=== PATIENT | male | born 1970 | race Caucasian/White ===

== ENCOUNTER → 2017-09-15 10:27 | Outpatient (CLI) | payer BC, SELFPAY ==
[2017-09-15 13:11] LABS: Anion Gap 9 (5-15); BUN 11 mg/dL (7-18); BUN/Creat Ratio 11.2 RATIO (10-20); Calcium,Total 8.9 mg/dL (8.5-10.1); Chloride 105 mmol/L (98-107); Cholesterol 147 mg/dL (200); Creatinine, Serum 0.98 mg/dL (0.70-1.30); EST Glomerular Filtration Rate 87 mL/min (>60); Est Glom Filt Rate - Afr Amer 106 mL/min (>60); Glucose 157 mg/dL (74-106); High Density Lipoprotein 31 mg/dL; Potassium 3.9 mmol/L (3.5-5.1); Sodium Level 141 mmol/L (136-145); Triglycerides 85 mg/dL; Very Low Density Lipoprotein 17 mg/dL (5-40)
[2017-09-15 13:17] LABS: Microalbumin,Random Urine 97.5 mg/L (NO RANGE EST.); Microalbumin:Creatinine Ratio 120.2 mg/g CRE (<30 mg/g CRE)
== END ==
PROVIDERS: Family Provider Family Medicine; PCP Family Medicine; Visit Provider Family Medicine
DX: E11.9 Type 2 diabetes mellitus without complications (principal)
CPT/HCPCS: 36415; 80048; 80061; 82043; 82570

== ENCOUNTER 2017-09-19 09:14 | Observation (INO) | payer BC, SELFPAY ==
[2017-09-19 09:14] VITALS: BP 139/84; PULSE 103; RESP 18; TEMP 36.6; O2SAT 96; BMI 35.9
[2017-09-19] MEDS: 0.9% Normal Saline 1,000 ML 1000 ML IV (09:55)
[2017-09-19] MEDS: Ondansetron 4 MG/2 ML Vial IV ×2 (09:56→19:39)
[2017-09-19] MEDS: Dicyclomine 20 MG/2 ML Vial IM (09:56)
--- NOTE | 2017-09-19 10:12 | ED.VISSUMM ---
- ER Visit Summary Date of Service: 09/19/17 Chief Complaint: [Abdominal pain and diarrhea] History of Present Illness: The patient is a 47 M [presents to the emergency department chief complaint of abdominal pain that started yesterday. Patient initially started with diarrhea about 5 days ago. Patient states that he continues to have diarrhea and his last bowel movement was about half an hour ago. Patient denies his vomiting but has had some nausea over last 24 hours. Patient had a sick contact last week that had similar illness but only lasted about 3 days. Denies any recent travel. Patient denies recent antibiotic usage. Patient has a history of diabetes and high cholesterol. Patient presents today with complaint of abdominal distention.] Physical Examination: [HEENT-PERRLA, EOMI. Cranial nerves II through XII grossly intact. TMs clear. Mucous membranes moist. No adenopathy. Cardiovascular-regular rate and rhythm without murmur or ectopy Lungs-clear to auscultation, chest wall stable without crepitus or subcu emphysema Abdomen-hyperactive bowel sounds with some mild distention. There is mild diffuse tenderness. There is no rebound, rigidity, or perineal signs. Extremities-intact ?4, normal range of motion, normal pulses, atraumatic] Test Results: [CBC with differential obtained showed a white blood cell count of 18.6, heme globin 19, hematocrit 53, platelets 250. Chemistries unremarkable. BUN was 20 and creatinine was 1.43. Glucose was 313. Lactate was elevated 2.4. CT scan of the abdomen and pelvis showed some small scattered lymph nodes otherwise nothing significant.] Emergency Department Course and Treatment: [And received 2 L normal saline fluid boluses and had stool sent for enteric pathogens.] Treatment Plan: [Admit] Disposition: [Admit] Impression: [Gastroenteritis Dehydration] This note was generated with [employer] dictation software. It may contain incorrect words, spelling, and punctuation that were not noted in review of the chart prior to signing ED Disposition - Plan for ED Patient: Chief Complaint: Abd Pain Referrals: Mohinder Bonilla MD [Primary Care Provider] -
[2017-09-19 10:16] LABS: Absolute Lymphocyte Count 2.78 X10^3/ul (0.83-4.51); Absolute Neutrophil Count 12.2 X10^3/uL (2.0-7.7); Basophil# 0.03 X10^3/uL; Basophil% 0.2 % (0-1); Eosinophils% 15.1 % (0-5); Lymphocyte # 2.78 X10^3/ul (4.0); Mean Corpuscular Hgb 29.4 pg (27.0-32.0); Mean Corpuscular Volume 81.7 fL (80-94); Mean Platelet Vol. 10.4 fl (6.2-12.0); Monocyte# 0.66 X10^3/uL; Monocyte% 3.6 % (0-10); Neutrophil # 12.21 X10^3/uL (2.7-7.7); Neutrophil % 65.6 % (47-70); Platelet Count 250 K/mm3 (150-450); RBC Distribution Width CV 13.3 % (11.6-14.6); RBC Distribution Width SD 39.4 fl (35.1-43.9); Red Blood Count 6.49 M/mm3 (4.6-6.2); White Blood Count 18.6 K/mm3 (4.4-11.0)
[2017-09-19 10:19] LABS: Differential Indicated SCAN CRITERIA MET; Hemoglobin 19.1 g/dl (13.0-16.5); POSITIVE COUNT NO; POSITIVE DIFFERENTIAL YES; POSITIVE MORPHOLOGY NO
--- NOTE | 2017-09-19 10:21 | CT_ITS ---
STUDY: CT ABDOMEN AND PELVIS WITH CONTRAST REASON FOR EXAM: Male, 47 years old. Diarrhea for one week, abdominal pain, bloating, distention. RADIATION DOSAGE (If Supplied By Facility): CTDIvol = ( 15.53 ) mGy, DLP = ( 1196.38 ) mGycm TECHNIQUE: Transaxial images were obtained from the dome of the diaphragm to the symphysis pubis with oral contrast. 100 ml of Isovue 300 contrast was administered. Sagittal and coronal images were reconstructed. Individualized dose optimization techniques were used for this CT. COMPARISON: None. FINDINGS: The visualized lung bases are unremarkable. The visualized portions of the heart are within normal limits. 5 mm ill-defined low-density difficult to further characterize noted in the anterior margin of segment IV of the liver on series 2 image 16. The elongated left lobe extends into the anterolateral left upper quadrant. Patent portal vein diameter is 15 mm. Normal gallbladder and extrahepatic biliary system. Normal spleen. Normal pancreas. Normal bilateral adrenal glands. Normal right kidney. Normal left kidney. No hydronephrosis. Normal visualized stomach. Normal small intestine. There are several small sigmoid colonic diverticula consistent with diverticulosis. The appendix is visualized and appears normal. There are several central mesenteric lymph nodes ranging from subcentimeter nonspecific size to mildly enlarged. One of the larger is 19 x 12 x 6 mm (series 601 image 52, series 2 image 54). There is mild atherosclerotic calcification of the abdominal aorta, without a demonstrated aneurysm. Normal inferior vena cava. Normal retroperitoneum. Normal urinary bladder. The prostate gland is 4.05 x 3.5 x 3.4 cm (25.4 cc). Normal abdominal wall. There are mild degenerative changes of the visualized spine, sacroiliac joints, hips, and pubic symphysis. Disc height narrowing is most prominent at L5-S1. Elongated 6.5 mm sclerotic density in the left femoral head has a benign appearance. CT/Abdomen/Pelvis WITH Contrast IMPRESSION: 1. Mild sigmoid diverticulosis without acute diverticulitis. No sign of bowel obstruction. The appendix is normal. 2. There are central mesenteric lymph nodes ranging from nonspecific subcentimeter size to mildly enlarged. No inflammatory/congestive mesenteric stranding, however. 3. 5 mm low-density difficult to characterize in segment IV of the liver. 4. No hydronephrosis. 5. Prostate gland size is upper normal. 6. Degenerative changes in the spine and pelvis. Electronically Signed: Hao Smith MD at 12:43 EST , Service support ,
[2017-09-19 10:26] LABS: AST(SGOT) 7 U/L (15-37); Alanine Aminotransfer ALT/SGPT 25 U/L (16-61); Alkaline Phosphatase 97 U/L (45-117); Anion Gap 14 (5-15); BUN 20 mg/dL (7-18); Calcium,Total 10.7 mg/dL (8.5-10.1); Chloride 92 mmol/L (98-107); Creatinine, Serum 1.43 mg/dL (0.70-1.30); EST Glomerular Filtration Rate 57 mL/min (>60); Est Glom Filt Rate - Afr Amer 68 mL/min (>60); Estimated Creatinine Clearance 60.35 ml/min; Globulin 4.1 g/dL (2.2-4.2); Glucose 313 mg/dL (74-106); Potassium 3.4 mmol/L (3.5-5.1); Protein, Total 8.1 g/dL (6.4-8.2); Sodium Level 130 mmol/L (136-145)
[2017-09-19 10:41] LABS: Differential Comment SCANNED
[2017-09-19 10:47] LABS: Lactic Acid 2.4 mmol/L (0.4-2.0)
--- NOTE | 2017-09-19 10:53 | ED.RN ---
PT WITH CRITICAL LAB VALUE OF LACTIC 2.4 AND HBG 19.1. BOTH VALUES COMMUNICATED VERBALLY TO DR. CABA.
[2017-09-19] MEDS: 0.9% Normal Saline 1,000 ML 999 ML IV (10:56)
[2017-09-19 11:14] VITALS: BP 125/61; PULSE 79; RESP 16; O2SAT 99
--- NOTE | 2017-09-19 13:13 | NURSING ---
DR PAT FOR DR CABA. HE'S BUSY WITH ANOTHER PATIENT. HE WILL CALL HER BACK WHEN DONE
--- NOTE | 2017-09-19 13:51 | NURSING ---
205 DEHYDRATION, PASQUALE, ASTROENTERITIS IMAMURA
[2017-09-19 13:55] VITALS: BP 125/65; PULSE 104; RESP 16; O2SAT 97
--- NOTE | 2017-09-19 13:59 | PCM.HP.STD ---
Problem List (1) Gastroenteritis and colitis, viral Status: Acute (2) PASQUALE (acute kidney injury) Status: Acute (3) Dehydration Status: Acute (4) Diabetes mellitus type II, controlled, with no complications Status: Chronic (5) Essential hypertension, benign Status: Chronic (6) Hypokalemia Status: Acute History of Present Illness Date of Admission: 09/19/17 Chief Complaint: Diarrhea, abdominal pain Patient is a 47 years old male, who presents with diarrhea and abdominal discomfort. He had symptoms of diarrhea, 1 to 2 times every hour for past 5 days, started to have abdominal bloating and cramping pain since yesterday. His cousin had similar symptoms prior to this episode. He has no history of recent travel. He had some nausea, but no vomiting. He denied of any fever or chills. He tried to keep up with fluid intake, but unable to do so for past 24 hours. His stool is watery yellow-green diarrhea. He has history of diabetes, controlled with oral hypoglycemic agents. He denied of any chest pain, palpitations, dyspnea, or dizziness. He denied of any hematochezia or melena. Past Medical History Past Medical History (Chronic Problems): Chronic Problems Diabetes mellitus type II, controlled, with no complications (Chronic) Essential hypertension, benign (Chronic) Allergies No Known Allergies Allergy (Verified 09/19/17 09:16) Home Medications: Ambulatory Orders Medication Instructions Recorded Empagliflozin [Jardiance] 10 mg PO DAILY 09/19/17 Glipizide [Glucotrol Xl] 10 mg PO DAILY 09/19/17 Losartan Potassium [Cozaar] 50 mg PO DAILY 09/19/17 Metformin HCl [Glucophage] 1,000 mg PO BIDCM 09/19/17 Simvastatin [Zocor] 20 mg PO QHS 09/19/17 Surgical History: no surgical history Psychiatric History: No pertinent psych hx Lives: With Family Smoking Status: Never smoker Alcohol: None Drugs: None - *Family History Maternal History Items: COPD - Mother. Paternal History Items: Cancer - Father had esophageal cancer. Review of Systems Comment: ROS: In general: Patient has been in good health, denied of any constitutional symptoms, such as weight loss, or gain, fever, chills, or night sweats. Patient denied of any profound fatigue. HEENT: Unremarkable. Patient denied of any dizziness, chronic headache, blurred vision, double vision, dry mouth, or nasal congestion. CV/respiratory: There is no exertional shortness of breath, chest pain, palpitation, wheezing, cough, claudication, cold feet, or peripheral edema. GI: See HPI. : Patient denied any significant urinary symptoms. Neurology: Unremarkable. There is no history of seizure as an adult. Psychological: Unremarkable. ?. Endocrine: Unremarkable. Musculoskeletal: Unremarkable. VTE Information - Inpt Only VTE Present on Admission: No VTE Mechan Device Prophylaxis: None VTE Pharm Prophylaxis ordered?: No Reason prophylaxis not ordered:: Treatment Not Indicated Patient Problems: Active and Suspected Problems Gastroenteritis and colitis, viral (Acute) PASQUALE (acute kidney injury) (Acute) Dehydration (Acute) Hypokalemia (Acute) Objective: In general, patient is a well-nourished and developed adult. HEENT: Head is atraumatic, and normocephalic. Pupils are equal, round, and reactive to light and accommodations. Neck is supple. There is no lymphadenopathy, or thyromegaly. Oral mucosa is pink, and moist. There are no lesions. Heart: Auscultation is normal with regular rhythm and rate. There is no extra heart sounds, or murmurs. S1 and S2 are present. Point of maximal impulse is not displaced. Lungs: Lungs are clear to auscultation bilaterally. There is no wheezing, or crackles. Abdomen: Abdominal wall is non-tender, and non-distended. There is no palpable mass or organomegaly. Bowel sounds slightly hyperpitched. Extremities: There is no cyanosis or clubbing. Peripheral pulses are palpable. There is no edema. Skin: There are no any skin discoloration or lesions. Neurological: CN II - XII are intact. Sensory and motor functions are grossly normal with no obvious deficit. Cerebellar functions are within normal range. Gait was not tested. - Physical Exam Vital Signs Temp Pulse Resp BP Pulse Ox 98 F 79 16 125/61 H 99 09/19/17 09:14 09/19/17 11:14 09/19/17 11:14 09/19/17 11:14 09/19/17 11:14 Oxygen Delivery Method Room Air Weight: 229 lb Body Mass Index (BMI) 35.9 Microbiology Past 72 Hours 09/19/17 10:00 Enteric Bacteriology - Final Stool Laboratory Tests Past 24 Hrs 09/19/17 09/19/17 09/19/17 09:44 09:44 09:44 WBC 18.6 H RBC 6.49 H Hgb 19.1 H* Hct 53.0 MCV 81.7 MCH 29.4 MCHC 36.0 RDW 13.3 RDW Differential 39.4 Plt Count 250 MPV 10.4 Immature Gran % (Auto) 0.500 Neut % (Auto) 65.6 Lymph % (Auto) 15.0 L [place] % (Auto) 3.6 Eos % (Auto) 15.1 H Baso % (Auto) 0.2 Absolute Neuts (auto) 12.2 H Absolute Lymphs (auto) 2.78 Total Counted Not Reportable Differential Comment SCANNED Diff Path Review December Sodium 130 L Potassium 3.4 L Chloride 92 L Carbon Dioxide 24.0 Anion Gap 14 BUN 20 H Creatinine 1.43 H Estim Creat Clear Calc 60.35 Est GFR (MDRD) Af Amer 68 Est GFR (MDRD) Non-Af 57 L BUN/Creatinine Ratio 14.0 Glucose 313 H Lactic Acid 2.4 H Calcium 10.7 H Total Bilirubin 0.80 AST 7 L ALT 25 Alkaline Phosphatase 97 Total Protein 8.1 Albumin 4.0 Globulin 4.1 Albumin/Globulin Ratio 1.0 Diagnostic Data Abdomen/Pelvis CT 09/19/17 10:21 IMPRESSION: 1. Mild sigmoid diverticulosis without acute diverticulitis. No sign of bowel obstruction. The appendix is normal. 2. There are central mesenteric lymph nodes ranging from nonspecific subcentimeter size to mildly enlarged. No inflammatory/congestive mesenteric stranding, however. 3. 5 mm low-density difficult to characterize in segment IV of the liver. 4. No hydronephrosis. 5. Prostate gland size is upper normal. 6. Degenerative changes in the spine and pelvis. Electronically Signed: Hao Smith MD at 12:43 EST , Service support , Assessment/Plan Active and Suspected Problems Gastroenteritis and colitis, viral (Acute) PASQUALE (acute kidney injury) (Acute) Dehydration (Acute) Hypokalemia (Acute) Patient is a 47 years old male, who presents with diarrhea and abdominal discomfort. He had symptoms of diarrhea, 1 to 2 times every hour for past 5 days, started to have abdominal bloating and cramping pain since yesterday. His cousin had similar symptoms prior to this episode. He has no history of recent travel. He had some nausea, but no vomiting. He denied of any fever or chills. He tried to keep up with fluid intake, but unable to do so for past 24 hours. His stool is watery yellow-green diarrhea. #1 Diarrhea / abdominal pain. Likely due to viral gastroenteritis / colitis, with leukocytosis. He had sick contact with similar symptoms. He has no use of antibiotics for past 6 month. Stool tests ordered from ED, result pending. Clear liquid, advance as tolerated. Conservative measures. IVF support. #2 PASQUALE / dehydration. Creatinine elevated to 1.43, baseline is normal. Most likely due to pre-renal azotemia with dehydration. IVF as above. Hold losartan for now. #3 DM II, controlled, no complications. Hold oral hypoglycemic agents. Add insulin sliding scale. #4 Essential hypertension. Blood pressure is adequate. Hold losartan for PASQUALE. #5 Hypokalemia. Potassium 3.4. Give K-CL IVPB 20 meq x 1. repeat BMP in AM. VTE prophylaxis: early ambulation. GI prophylaxis: H2 angelito po. Patient is full code. Disposition: home in 1 to 2 days. Code Visit OBSV E&M: 25058 Initial observation care L3
[2017-09-19 14:05] LABS: Reflex Lactate? Y
[2017-09-19 14:26] VITALS: BMI 35.9
[2017-09-19 14:54] VITALS: BP 120/53; PULSE 91; RESP 18; TEMP 37.2; O2SAT 99
[2017-09-19 14:55] VITALS: BMI 34.5
[2017-09-19] MEDS: 0.9% Normal Saline 1,000 ML 150 ML IV ×2 (15:12→21:33)
[2017-09-19 16:09] LABS: Lactic Acid 2.1 mmol/L (0.4-2.0)
[2017-09-19 17:01] LABS: Bedside Glucose 102 mg/dL (70-110)
[2017-09-19] MEDS: 0.9% NaCl Peripheral Flush Adult/Peds IV (19:39)
[2017-09-19 20:31] VITALS: BP 126/64; PULSE 65; RESP 16; TEMP 36.8; O2SAT 98
[2017-09-19] MEDS: Famotidine 20 MG Tablet PO (21:33)
[2017-09-19 22:06] LABS: Bedside Glucose 97 mg/dL (70-110)
[2017-09-20 02:35] VITALS: BP 112/56; PULSE 62; RESP 16; TEMP 36.9; O2SAT 97
[2017-09-20] MEDS: 0.9% Normal Saline 1,000 ML 150 ML IV ×2 (04:00→10:19)
[2017-09-20 06:50] LABS: Absolute Lymphocyte Count 3.09 X10^3/ul (0.83-4.51); Absolute Neutrophil Count 6.9 X10^3/uL (2.0-7.7); Basophil# 0.07 X10^3/uL; Basophil% 0.5 % (0-1); Eosinophils% 27.1 % (0-5); Hematocrit 45.4 % (40-54); Hemoglobin 16.4 g/dl (13.0-16.5); Lymphocyte # 3.09 X10^3/ul (4.0); Lymphocyte % 20.3 % (19-41); Mean Corp Hgb Conc 36.1 g/gl (32-36); Mean Corpuscular Hgb 29.4 pg (27.0-32.0); Mean Corpuscular Volume 81.5 fL (80-94); Mean Platelet Vol. 10.4 fl (6.2-12.0); Monocyte# 0.95 X10^3/uL; Monocyte% 6.3 % (0-10); Neutrophil # 6.92 X10^3/uL (2.7-7.7); Neutrophil % 45.5 % (47-70); Platelet Count 222 K/mm3 (150-450); RBC Distribution Width CV 13.7 % (11.6-14.6); RBC Distribution Width SD 40.1 fl (35.1-43.9); Red Blood Count 5.57 M/mm3 (4.6-6.2); White Blood Count 15.2 K/mm3 (4.4-11.0)
[2017-09-20 06:51] LABS: Differential Indicated SCAN CRITERIA MET; Eosinophil# 4.12 X10^3/uL; POSITIVE COUNT NO; POSITIVE DIFFERENTIAL YES; POSITIVE MORPHOLOGY NO
[2017-09-20 06:51] LABS: Bedside Glucose 126 mg/dL (70-110)
[2017-09-20 07:20] LABS: Anion Gap 13 (5-15); BUN 18 mg/dL (7-18); BUN/Creat Ratio 17.1 RATIO (10-20); Calcium,Total 8.3 mg/dL (8.5-10.1); Chloride 102 mmol/L (98-107); Creatinine, Serum 1.05 mg/dL (0.70-1.30); EST Glomerular Filtration Rate 81 mL/min (>60); Est Glom Filt Rate - Afr Amer 98 mL/min (>60); Estimated Creatinine Clearance 82.19 ml/min; Glucose 145 mg/dL (74-106); Potassium 3.2 mmol/L (3.5-5.1); Sodium Level 138 mmol/L (136-145)
[2017-09-20 07:25] LABS: Differential Comment SCAN
[2017-09-20 08:00] VITALS: RESP 18
[2017-09-20 08:30] VITALS: BP 107/60; PULSE 65; RESP 16; TEMP 36.8; O2SAT 98
--- NOTE | 2017-09-20 09:24 | PN_ITS ---
Patient Problems: Active and Suspected Problems Gastroenteritis and colitis, viral (Acute) PASQUALE (acute kidney injury) (Acute) Dehydration (Acute) Hypokalemia (Acute) Subjective: Patient is a 47-year-old male with a past medical history of diabetes mellitus type 2, obesity and hypertension presented to the emergency room at [facility] on 09/19/2017 complaining of a 5 day history of severe diarrhea. Vital signs at presentation to the emergency room were temperature 98 ?F, pulse rate 103, pressure 139/84, respiratory rate 18 and he was 96-99% saturated on room air. White blood cell count was elevated at 18.6 with 15% eosinophils. Sodium was 130 and the potassium was 3.4. BUN was 20 with a creatinine of 1.43. Glucose was 313 and the lactic acid was 2.4. Calcium was elevated at 10.7 secondary to dehydration. LFTs were unremarkable. The enteric pathogen panel was negative. He stated that he had a sick contact with similar symptoms. He has been afebrile since admission. It will signs are stable. The pulse rate is down to 65 following hydration. White blood cell count is still elevated at 15.2 and now there are 27% eosinophils. Potassium is low at 3.2 today and the BUN is 1.05, down from 1.43 at admission. He denies any new medications or foods recently. He has well water and uses it to clean and cook with. 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 He denies nausea or vomiting. No recent travel. No undercooked meat. No Fevers and no chills. He continues to have frequent watery stools. the stool has a yellow brown color and floats on the water. No problems with chronic diarrhea. No FH of IBD. No rash and no pruritus. No SOB or wheezing. Has not been on any antibiotics recently and has no hx of C Diff. - Physical Exam General: Alert, Oriented x3, Cooperative, No apparent distress, Well developed, Well nourished HEENT: Atraumatic, PERRLA, EOMI Oral: Moist Mucosa, No Gingival or Mucosal Lesions/ Ulcerations Neck: Supple, No JVD Lungs: Clear to auscultation, Normal air movement Cardiovascular: Regular rate, Regular Rhythm, Normal S1, Normal S2, No murmurs, No rub noted, No Gallop Abdomen: Bowel Sounds Present - not hyperactive, Soft, Non Tender, Distended - and tympanic Extremities: No clubbing, No cyanosis, No edema, No Calf Tenderness Musculoskeletal: No Muscle Wasting Neurological: Cranial nerves II-XII grossly intact, Neuro grossly intact, Motor Exam 5/5 strength throughout Psych/Mental Status: Normal Affect, Appropriate Vital Signs Temp Pulse Resp BP Pulse Ox 98.3 F 65 16 107/60 98 09/20/17 08:30 09/20/17 08:30 09/20/17 08:30 09/20/17 08:30 09/20/17 08:30 Oxygen Delivery Method Room Air Weight: 220 lb 8 oz Body Mass Index (BMI) 34.5 Intake and Output for Last 24 Hours 09/18/17 09/19/17 09/20/17 23:59 23:59 23:59 Intake Total 3599 / 3599 Output Total 1150 / 1150 Balance 2449 / 2449 Laboratory Tests Past 24 Hrs 09/19/17 09/20/17 09/20/17 14:48 06:35 06:35 WBC 15.2 H RBC 5.57 Hgb 16.4 Hct 45.4 MCV 81.5 MCH 29.4 MCHC 36.1 H RDW 13.7 RDW Differential 40.1 Plt Count 222 MPV 10.4 Immature Gran % (Auto) 0.300 Neut % (Auto) 45.5 L Lymph % (Auto) 20.3 [place] % (Auto) 6.3 Eos % (Auto) 27.1 H Baso % (Auto) 0.5 Absolute Neuts (auto) 6.9 Absolute Lymphs (auto) 3.09 Total Counted Not Reportable Differential Comment SCAN Diff Path Review May foll Sodium 138 Potassium 3.2 L Chloride 102 Carbon Dioxide 23.0 Anion Gap 13 BUN 18 Creatinine 1.05 Estim Creat Clear Calc 82.19 Est GFR (MDRD) Af Amer 98 Est GFR (MDRD) Non-Af 81 BUN/Creatinine Ratio 17.1 Glucose 145 H Lactic Acid 2.1 H Calcium 8.3 L POC Glucose 09/20/17 09/19/17 09/19/17 06:15 21:32 16:53 POC Glucose 126 H 97 102 Assessment/Plan Active and Suspected Problems Gastroenteritis and colitis, viral (Acute) PASQUALE (acute kidney injury) (Acute) Dehydration (Acute) Hypokalemia (Acute) impressions 1. intractable diarrhea - with the increased eosinophils I am suspecting he has a parasite. 2. elevated creatinine due to dehydration 3. hypokalemia 4. DM II - well controlled 5. obesity 6. HTN Check stool for fecal leukos and also for O&P after the stool sample is obtained for O&P start empiric Flagyl continue to hydrate and add K to the NS Recheck lab in the AM including a Lipid panel and LFT's......if W/U for parasites is negative consider fecal fat study....but this would not explain the eosinophilia Full liquid, no dairy diet. Code Visit Inpatient E&M: 91733 Subs Hosp L2
[2017-09-20 10:03] LABS: Magnesium 1.8 mg/dL (1.6-2.6); Phosphorus 2.6 mg/dL (2.5-4.9)
[2017-09-20] MEDS: Famotidine 20 MG Tablet PO ×2 (10:15→21:41)
[2017-09-20 10:36] LABS: Hemoglobin A1c 6.6 % (4.2-6.3)
[2017-09-20 11:36] LABS: Bedside Glucose 135 mg/dL (70-110)
[2017-09-20 12:05] LABS: HIV - WCH Non-Reactive (Nonreactive)
[2017-09-20 14:11] VITALS: BP 112/51; PULSE 66; RESP 18; TEMP 36.8; O2SAT 98
[2017-09-20] MEDS: metroNIDAZOLE 500 MG Tablet PO ×2 (14:13→21:41)
[2017-09-20 16:51] LABS: Bedside Glucose 149 mg/dL (70-110)
[2017-09-20 21:45] VITALS: BP 122/62; PULSE 61; RESP 18; TEMP 36.4; O2SAT 98
[2017-09-20 21:51] LABS: Bedside Glucose 170 mg/dL (70-110)
[2017-09-21 03:45] VITALS: BP 104/61; PULSE 61; RESP 16; TEMP 36.8; O2SAT 96
[2017-09-21] MEDS: metroNIDAZOLE 500 MG Tablet PO ×3 (05:50→21:01)
[2017-09-21 06:12] LABS: Absolute Lymphocyte Count 2.62 X10^3/ul (0.83-4.51); Absolute Neutrophil Count 5.4 X10^3/uL (2.0-7.7); Basophil# 0.06 X10^3/uL; Basophil% 0.5 % (0-1); Eosinophils% 26.8 % (0-5); Hematocrit 41.6 % (40-54); Hemoglobin 14.9 g/dl (13.0-16.5); Lymphocyte # 2.62 X10^3/ul (4.0); Lymphocyte % 21.5 % (19-41); Mean Corp Hgb Conc 35.8 g/gl (32-36); Mean Corpuscular Hgb 29.2 pg (27.0-32.0); Mean Corpuscular Volume 81.6 fL (80-94); Mean Platelet Vol. 10.5 fl (6.2-12.0); Monocyte% 6.6 % (0-10); Neutrophil # 5.41 X10^3/uL (2.7-7.7); Neutrophil % 44.3 % (47-70); Platelet Count 191 K/mm3 (150-450); RBC Distribution Width CV 13.4 % (11.6-14.6); RBC Distribution Width SD 38.9 fl (35.1-43.9); White Blood Count 12.2 K/mm3 (4.4-11.0)
[2017-09-21 06:15] LABS: Differential Indicated SCAN CRITERIA MET; Eosinophil# 3.27 X10^3/uL; POSITIVE COUNT NO; POSITIVE DIFFERENTIAL YES; POSITIVE MORPHOLOGY NO
[2017-09-21 06:41] LABS: Bedside Glucose 198 mg/dL (70-110)
[2017-09-21 06:41] LABS: ALB/GLOB Ratio 0.9 RATIO (0.9-2.4); AST(SGOT) 11 U/L (15-37); Alanine Aminotransfer ALT/SGPT 19 U/L (16-61); Albumin, Serum 2.9 g/dL (3.2-5.0); Alkaline Phosphatase 64 U/L (45-117); Anion Gap 10 (5-15); BUN 18 mg/dL (7-18); Calcium,Total 7.8 mg/dL (8.5-10.1); Chloride 104 mmol/L (98-107); Cholesterol 120 mg/dL (200); Creatinine, Serum 0.82 mg/dL (0.70-1.30); EST Glomerular Filtration Rate 108 mL/min (>60); Est Glom Filt Rate - Afr Amer 130 mL/min (>60); Estimated Creatinine Clearance 105.24 ml/min; Globulin 3.1 g/dL (2.2-4.2); Glucose 184 mg/dL (74-106); High Density Lipoprotein 26 mg/dL; Magnesium 1.8 mg/dL (1.6-2.6); Phosphorus 1.7 mg/dL (2.5-4.9); Potassium 3.1 mmol/L (3.5-5.1); Sodium Level 137 mmol/L (136-145); Triglycerides 126 mg/dL; Very Low Density Lipoprotein 25 mg/dL (5-40)
[2017-09-21 07:08] LABS: Differential Comment SCAN
[2017-09-21 09:45] VITALS: BP 108/70; PULSE 64; RESP 18; TEMP 36.5; O2SAT 98
[2017-09-21 10:29] LABS: Pathologist Review Reviewed
[2017-09-21] MEDS: Famotidine 20 MG Tablet PO ×2 (11:05→21:01)
[2017-09-21 11:21] LABS: Bedside Glucose 255 mg/dL (70-110)
[2017-09-21 11:51] LABS: Bedside Glucose 256 mg/dL (70-110)
--- NOTE | 2017-09-21 13:54 | PCM.PROGNOTE ---
Patient Problems: Active and Suspected Problems Gastroenteritis and colitis, viral (Acute) PASQUALE (acute kidney injury) (Acute) Dehydration (Acute) Hypokalemia (Acute) Subjective: Continues to have watery diarrhea and fecal urgency. Afebrile since admission. Vital signs are stable and the heart rate is maintained within the normal limits as long as he is on IV fluids. All lab was reviewed. White blood cell count today is 12.2 with 26.8% eosinophils. Platelets and hemoglobin are within normal limits. Potassium is low at 3.1 despite adding potassium to his IV fluids. Serum phosphorus is also low at 1.7. Magnesium is 1.8. Triglycerides are normal at 126 and the LDL is 69 with an HDL of 26. Blood sugar record was reviewed. Fecal leukocytes are negative. Enteric pathogen panel is negative O&P is pending but, may not be back for a few days. No fever, WBC count is normal. He does have a hx of allergies and takes antihistamines for nasal congestion. No hx of asthma or psoriasis or eczema. No joint pain or swelling. No difficulaty swallowing. No FH of autoimmune diseases. - Physical Exam General: Alert, Oriented x3, Cooperative, No apparent distress, Well developed, Well nourished Oral: Moist Mucosa, No Gingival or Mucosal Lesions/ Ulcerations Neck: Supple, Trachea Midline Lungs: Clear to auscultation, No wheeze Cardiovascular: Regular rate, Regular Rhythm, Normal S1, Normal S2, No murmurs, No Gallop Abdomen: Soft, Hyperactive Bowel Sounds, Distended Extremities: No clubbing, No cyanosis, No edema Skin: No rashes Neurological: Cranial nerves II-XII grossly intact, Neuro grossly intact Psych/Mental Status: Normal Affect, Appropriate Vital Signs Temp Pulse Resp BP Pulse Ox 97.7 F L 64 18 108/70 98 09/21/17 09:45 09/21/17 09:45 09/21/17 09:45 09/21/17 09:45 09/21/17 09:45 Oxygen Delivery Method Room Air Weight: 220 lb 7.996 oz Body Mass Index (BMI) 34.5 Intake and Output for Last 24 Hours 09/19/17 09/20/17 09/21/17 23:59 23:59 23:59 Intake Total 7299 / 7299 3896 / 3896 Output Total 5750 / 5750 3400 / 3400 Balance 1549 / 1549 496 / 496 Microbiology Past 72 Hours 09/20/17 10:00 Stool Lactoferrin - Final Stool Laboratory Tests Past 24 Hrs 09/21/17 09/21/17 05:40 05:40 WBC 12.2 H RBC 5.10 Hgb 14.9 Hct 41.6 MCV 81.6 MCH 29.2 MCHC 35.8 RDW 13.4 RDW Differential 38.9 Plt Count 191 MPV 10.5 Immature Gran % (Auto) 0.300 Neut % (Auto) 44.3 L Lymph % (Auto) 21.5 [place] % (Auto) 6.6 Eos % (Auto) 26.8 H Baso % (Auto) 0.5 Absolute Neuts (auto) 5.4 Absolute Lymphs (auto) 2.62 Total Counted Not Reportable Differential Comment SCAN Diff Path Review Reviewed Sodium 137 Potassium 3.1 L Chloride 104 Carbon Dioxide 23.0 Anion Gap 10 BUN 18 Creatinine 0.82 Estim Creat Clear Calc 105.24 Est GFR (MDRD) Af Amer 130 Est GFR (MDRD) Non-Af 108 BUN/Creatinine Ratio 22.0 H Glucose 184 H Calcium 7.8 L Phosphorus 1.7 L Magnesium 1.8 Total Bilirubin 0.50 AST 11 L ALT 19 Alkaline Phosphatase 64 Total Protein 6.0 L Albumin 2.9 L Globulin 3.1 Albumin/Globulin Ratio 0.9 Triglycerides 126 Cholesterol 120 LDL Cholesterol 69 VLDL Cholesterol 25 HDL Cholesterol 26 L POC Glucose 09/21/17 09/21/17 09/21/17 11:44 11:03 06:20 POC Glucose 256 H 255 H 198 H 09/20/17 09/20/17 21:40 16:34 POC Glucose 170 H 149 H Assessment/Plan Active and Suspected Problems Gastroenteritis and colitis, viral (Acute) PASQUALE (acute kidney injury) (Acute) Dehydration (Acute) Hypokalemia (Acute) impressions 1. intractable diarrhea - with the increased eosinophils I am suspecting he has a parasite. 2. elevated creatinine due to dehydration 3. hypokalemia 4. DM II - well controlled 5. obesity 6. HTN 7. Hypophosphatemia 8. eosinophilia with an absolute eosinophil count of 3294. I do not think this is infectious because he has no fecal leukocytes and the Enteric pathogen panel and the HIV are negative. I suspect he may have eosinophilc enteritis but, can not r/o things like lymphoma and other hematologic malignancies at this time. Will consult Gastroenterology and ID for now but, may need to consider a Heme/onc consult as well if no infection and the colon biopsies are negative. Hold off on Steroids until we have a definitive diagnosis Supplement the phos and the potassium Consult Dr. Fernandes Continue the Metronidazole for now Consult Dr. Cardoso Recheck the lab in the AM Check IG G/A/M/E
[2017-09-21 14:03] VITALS: BP 120/57; PULSE 64; RESP 18; TEMP 36.5; O2SAT 98
[2017-09-21 14:48] LABS: Pathologist Review Reviewed
[2017-09-21 14:53] LABS: Pathologist Review Reviewed
[2017-09-21 14:59] LABS: Ferritin 198 ng/mL (26-388); Iron 70 ug/dL (65-175); Iron Binding Capacity,Total 349 ug/dL (250-450); PERCENT IRON SATURATION 20.1 % (15.0-55.0)
--- NOTE | 2017-09-21 15:45 | PCM.CONS.B ---
- Consult Date of Consult: 09/21/17 Reason for consultation: Patient with diarrhea and eosinophilia The patient is a [47] year old [male] who I have been asked to consult. The patient reports chronic diarrhea for the last week or so had no travel history no food poisoning one else at home is sick. He is not taking any new medications as any weight loss no fever or chills blood or mucus in the diarrhea just watery brown and lately has been biliary like. He denies any family members is having disease or chronic colitis as any fever or night sweats. The patient reports he ate at a solid bowel last week with his cousin apparently was sick at the time he has recovered. She denies any chest pains cough asthma wheezing his review of systems is noted he does have diabetes otherwise reports he is doing relatively well does not have any neurological or complaints endocrine disorders neurological problems have some renal insufficiency upon admission but this has resolved with hydration. Allergies: No drug allergies Medications: Active Medications Generic Name Dose Route Start Last Admin Trade Name Freq PRN Reason Stop Dose Admin Al Hydroxide/Mg Hydroxide 30 ml 09/19/17 14:45 Mylanta Ii PO Q6H PRN PRN Gastric burning Dextrose 0 gm 09/19/17 14:45 D50w Syringe IV X1 PRN Hypoglycemia Protocol Famotidine 20 mg 09/19/17 22:00 09/21/17 11:05 Pepcid PO 20 mg BID SEBASTIEN Administration Glucagon 1 mg 09/19/17 14:45 IM .X1 PRN Hypoglycemia Potassium Chloride/Sodium Chloride 1,000 mls @ 150 mls/hr 09/20/17 10:56 09/21/17 13:55 IV 150 mls/hr .Q6H40M SEBASTIEN Administration Insulin Aspart 0 units 09/19/17 16:00 09/21/17 11:11 Novolog Flexpen (Bkc) SC 3 units TIDAC SEBASTIEN Administration Protocol Magnesium Hydroxide 30 ml 09/19/17 14:45 Milk Of Magnesia PO DAILY PRN PRN Constipation Metronidazole 500 mg 09/20/17 14:00 09/21/17 13:55 Flagyl PO 500 mg TID SEBASTIEN Administration Morphine Sulfate 2 mg 09/19/17 19:19 Morphine IV Q3H PRN PRN SEVERE PAIN (6-10/10) Nutritional Formula (Lactose Free) 120 ml 09/20/17 08:00 09/21/17 11:05 Ensure Clear PO 120 ml TIDCM SEBASTIEN Administration Ondansetron HCl 4 mg 09/19/17 14:45 09/19/17 19:39 Zofran IV 4 mg Q6H PRN PRN Administration NAUSEA Sodium Chloride 5 - 30 ml 09/19/17 15:20 09/19/17 19:39 IV 10 ml UD PRN Administration SALINE FLUSH Sodium Chloride/Electrolytes 2,000 ml 09/22/17 07:00 Nulytely PO 09/22/17 07:01 X1 ONE Zolpidem Tartrate 5 mg 09/19/17 14:45 Ambien (Generic) PO QHS PRN PRN INSOMNIA PMH: He has diabetes and hypertension PSH: Recent surgeries Social: He denies smoking ROS: Noted in the HPI Vitals: Vital Signs Height 5 ft 7 in Weight: 100.017 kg Weight in Pounds 220.5 lbs Pulse Ox 98 Temperature 97.7 F Pulse Rate 64 Respiratory Rate 18 Blood Pressure 120/57 Blood Pressure Position Semi-Fowlers HEENT: Anicteric sclera conjunctiva pink NECK: Supple no JVD HEART: S1-S2 no murmur heard LUNGS: Clear bilaterally no rales ABDOMEN: Slight distention tympanic to percussion EXTER: No peripheral edema Neuro: Alert ?3 no gross deficits Impression: This is a 47-year-old male presenting with acute onset of diarrhea now for almost 1 week did eat a salad bar was sickly after that last week significant eosinophilia stool for pathogens currently pending. I would recommend a C-reactive protein stool for ova and parasites. I did discuss a colonoscopy with biopsies of the mucosa including the terminal ileum this will be scheduled in the morning.
[2017-09-21 17:35] LABS: Bedside Glucose 198 mg/dL (70-110)
[2017-09-21] MEDS: Electrolyte Solution/Peg's 4000 ML 2000 ML PO (20:02)
[2017-09-21 21:03] VITALS: BP 119/69; PULSE 58; RESP 16; TEMP 36.2; O2SAT 99
[2017-09-21 21:17] LABS: Bedside Glucose 190 mg/dL (70-110)
[2017-09-22] VITALS (8 sets, daily range): BP systolic 93–118; BP diastolic 41–65; PULSE 57–70; RESP 16–18; TEMP 36.4–36.7; O2SAT 97–100
--- NOTE | 2017-09-22 05:00 | EKG12_ITS ---
Test Reason : Blood Pressure : / mmHG Vent. Rate : 061 BPM Atrial Rate : 061 BPM P-R Int : 164 ms QRS Dur : 088 ms QT Int : 430 ms P-R-T Axes : 036 -41 019 degrees QTc Int : 432 ms Normal sinus rhythm Left axis deviation Abnormal ECG No previous ECGs available Confirmed by ELAINE BAEZ ([id number]), primer expeditor and drier HILDA DOMINGUEZ ([id number]) on 10/03/2017 1:54:18 PM Referred By: Confirmed By:ELAINE BAEZ
[2017-09-22] MEDS: metroNIDAZOLE 500 MG Tablet PO ×2 (06:41→13:14)
[2017-09-22] MEDS: Electrolyte Solution/Peg's 4000 ML 2000 ML PO (06:42)
[2017-09-22 06:50] LABS: Bedside Glucose 192 mg/dL (70-110)
[2017-09-22 06:56] LABS: Absolute Lymphocyte Count 2.57 X10^3/ul (0.83-4.51); Absolute Neutrophil Count 4.1 X10^3/uL (2.0-7.7); Basophil# 0.02 X10^3/uL; Basophil% 0.2 % (0-1); Eosinophil# 1.57 X10^3/uL; Eosinophils% 17.6 % (0-5); Hematocrit 44.3 % (40-54); Hemoglobin 15.4 g/dl (13.0-16.5); Lymphocyte # 2.57 X10^3/ul (4.0); Lymphocyte % 28.8 % (19-41); Mean Corp Hgb Conc 34.8 g/gl (32-36); Mean Corpuscular Hgb 28.8 pg (27.0-32.0); Mean Platelet Vol. 10.5 fl (6.2-12.0); Monocyte# 0.62 X10^3/uL; Neutrophil # 4.11 X10^3/uL (2.7-7.7); Neutrophil % 46.1 % (47-70); Platelet Count 174 K/mm3 (150-450); RBC Distribution Width CV 13.2 % (11.6-14.6); RBC Distribution Width SD 39.8 fl (35.1-43.9); Red Blood Count 5.34 M/mm3 (4.6-6.2); White Blood Count 8.9 K/mm3 (4.4-11.0)
[2017-09-22 06:58] LABS: POSITIVE COUNT NO; POSITIVE DIFFERENTIAL NO; POSITIVE MORPHOLOGY NO
[2017-09-22 07:13] LABS: Erythrocyte Sedimentation Rate 5 mm/hr (0-15)
[2017-09-22 07:37] LABS: Anion Gap 13 (5-15); BUN 12 mg/dL (7-18); BUN/Creat Ratio 15.2 RATIO (10-20); Chloride 107 mmol/L (98-107); Creatinine, Serum 0.79 mg/dL (0.70-1.30); EST Glomerular Filtration Rate 112 mL/min (>60); Est Glom Filt Rate - Afr Amer 135 mL/min (>60); Estimated Creatinine Clearance 109.24 ml/min; Glucose 194 mg/dL (74-106); Potassium 3.1 mmol/L (3.5-5.1); Sodium Level 140 mmol/L (136-145)
[2017-09-22 09:23] LABS: Vitamin B12 746 pg/mL (211-911)
--- NOTE | 2017-09-22 10:45 | CASEMGMT ---
See RN CM Assessment. DC PLAN: home. No needs identified. Felice ROCKN RN ACM
[2017-09-22 11:46] LABS: Bedside Glucose 196 mg/dL (70-110)
--- NOTE | 2017-09-22 11:55 | COLBX_PTH ---
PATIENT: LOIS ZAZUETA LOC: MS2 U#:[id number] AGE/SX: 47/M ROOM: [facility] [place] RE09/19/[address]: Dr. Nessa Martin DO : 1970 BED: 1 DIS: 09/22/2017 SPEC #: [id number] RECD: 09/22/17 13:51 STATUS: RANDALL REJorje #: [id number] MONICA: 09/22/17 11:[address]: Toni Fernandes DEPT: SURGICAL PATHOLOGY RECD BY: Danny Park ENTERED: 09/22/17 13:52 SP TYPE: COLON BX OTHR DR: DO Dr. Mohinder Dunbar MD Dr. Robert Leininger, MD Yoichi Imamura, MD Tissues: A - Ileum, NOS B - Right colon C - Left colon Procedures: Trichrome (control) Special Stain Group II Surgery Specimen Level IV Comments: @ Ordering doctor for CARIDAD edited from to @ by RAJESHOD at 09/25/17813 @ Submitting doctor edited from to @ by RGOOD at 09/25/1714 HEADER OPERATION: Colonoscopy PRE-OP DIAGNOSIS: Diarrhea, rule out Crohn?s, rule out colitis TISSUE SUBMITTED: A ? Terminal ileum biopsy, B ? Right colon biopsy and transverse biopsy, C ? Left colon biopsy MICROSCOPIC DIAGNOSIS A. Terminal ileum, biopsy: No pathologic change. B. Right colon and transverse colon, biopsy: Focal acute colitis. C. Left colon, biopsy: Focal acute colitis. AM:kamla 09/25/17 COMMENT A. Prominent benign appearing lymphoid aggregates are present. B. Rare cryptitis and crypt abscesses are seen. The lamina propria contains increased number of eosinophils. The significance of this is unclear. There is no glandular distortion, ulceration or expansion of lamina propria by chronic inflammatory cells. Clinical correlation is suggested. C. Rare cryptitis is noted. No crypt abscesses, granulomas or ulcers are seen. Clinical correlation is suggested. Trichrome stain with matched control does not reveal a thickened basal plate. MICROSCOPIC DESCRIPTION Slides are reviewed. GROSS DESCRIPTION A - Received in fixative is one container labeled with the patient's name and designated terminal ileum biopsy. The specimen consists of multiple irregular fragments of light fofana soft tissue that in aggregate measure 0.5 x 0.3 x 0.1 cm. The specimen is totally submitted in one cassette. B - Received in fixative is one container labeled with the patient's name and designated right colon biopsy and transverse. The specimen consists of multiple irregular fragments of light fofana soft tissue that in aggregate measure 1 x 0.8 x 0.1 cm. The specimen is totally submitted in one cassette. C - Received in fixative is one container labeled with the patient's name and designated left colon biopsy. The specimen consists of multiple irregular fragments of light fofana soft tissue that in aggregate measure 1.5 x 0.2 x 0.1 cm. The specimen is totally submitted in one cassette. / SJ:rg 09/22/17 TC:2 CPT: 24510 x3, 49013
--- NOTE | 2017-09-22 12:07 | PCM.OP.BLANK ---
Operative Report Date of Procedure: 09/22/17 Preop diagnosis: [Patient with diarrhea] Postop diagnosis: [Colonoscopy to the terminal ileum with biopsy mucosa. Small erosions and shallow ulcerations noted in the left colon] Anesthesia:[A MAC] Instrument:[Olympus adjustable pediatric colonoscope] Informed consent was taken prior to procedure. The patient was brought to the endoscopy suite and placed in the left shoulder down. Anesthesia provided the MAC. Rectal exam was performed prior to inserting the scope. Scope was passed in the rectum the rectal mucosa showed some erosions and small superficial to the mucosa noted in the distal sigmoid rectal area the upper left colon there was some shallow lesions noted of the mucosa 50 cm near the splenic flexure the mucosa normalized. Across the transverse colon mucosa appeared normal down the right colon the cecum was well-visualized patient excellent preparation no inflammation noted in the right colon. Terminal ileum was intubated no ulcerations were seen some random biopsies were taken. Back in the right colon and biopsies were taken up to the mid transverse colon and placed in a separate container. Below the splenic flexure area of the erosions multiple biopsies were taken down to the left colon and placed in a separate container. Retroflexion performed the rectum showed some small internal hemorrhoids. The colon was decompressed the patient tolerated procedure well. Impression: Diarrhea with some erosions noted in the left colon infectious versus inflammatory bowel disease Plan: Continue patient on oral Cipro and oral Flagyl may be discharged and follow-up as an outpatient.
[2017-09-22] MEDS: Famotidine 20 MG Tablet PO (13:14)
[2017-09-22 13:26] LABS: Bedside Glucose 205 mg/dL (70-110)
--- NOTE | 2017-09-22 14:17 | PCM.HP.ID ---
Reason for Consult: diarrhea Consulted by: Dr. Martin History of Present Illness: The patient is a 47 year old M who presented 09/19 with 5 days of frequent diarrhea associated with some mild abd cramping. No unusual foods/travel/exposures. No hunting. No camping. No sick kids. No recent abx or prior h/o cdiff. No blood in stool, no fever. Some mild nausea. Was having BMs about every hour. Had a cousin with similar symptoms immediately prior to getting sick, but he got better within 3 days (did require IV fluids at hospital, though). Came to ED, admitted, stool studies sent. CBC showed peripheral eosinophilia. Flagyl started, still with continued diarrhea, no improvement. Had colonoscopy with bx this AM. Full ROS performed and neg except as noted above. - Medical History Past Medical History (Chronic Problems): Chronic Problems Diabetes mellitus type II, controlled, with no complications (Chronic) Essential hypertension, benign (Chronic) Allergies/Adverse Reactions: Allergies No Known Allergies Allergy (Verified 09/19/17 09:16) Home Medications: Ambulatory Orders Medication Instructions Recorded Empagliflozin [Jardiance] 10 mg PO DAILY 09/19/17 Glipizide [Glucotrol Xl] 10 mg PO DAILY 09/19/17 Losartan Potassium [Cozaar] 50 mg PO DAILY 09/19/17 Metformin HCl [Glucophage] 1,000 mg PO BIDCM 09/19/17 Simvastatin [Zocor] 20 mg PO QHS 09/19/17 - Social History SMOKING STATUS:: Never smoker Vital Signs Temp Pulse Resp BP Pulse Ox 98.1 F 63 18 110/52 L 97 09/22/17 13:05 09/22/17 13:05 09/22/17 13:05 09/22/17 13:05 09/22/17 13:05 Oxygen Delivery Method Room Air Weight: 100.017 kg Microbiology Past 72 Hours 09/20/17 10:00 Stool Lactoferrin - Final Stool Laboratory Tests Past 24 Hrs 09/21/17 09/21/17 09/21/17 14:16 14:16 14:16 WBC RBC Hgb Hct MCV MCH MCHC RDW RDW Differential Plt Count MPV Immature Gran % (Auto) Neut % (Auto) Lymph % (Auto) Campbell % (Auto) Eos % (Auto) Baso % (Auto) Absolute Neuts (auto) Absolute Lymphs (auto) Total Counted ESR Sodium Potassium Chloride Carbon Dioxide Anion Gap BUN Creatinine Estim Creat Clear Calc Est GFR (MDRD) Af Amer Est GFR (MDRD) Non-Af BUN/Creatinine Ratio Glucose Calcium Iron 70 TIBC 349 Iron Saturation 20.1 Ferritin 198 C-React Prot Ext Range Vitamin B12 746 IgG Pending IgA Pending IgM Pending IgE Pending 09/22/17 09/22/17 05:51 05:51 WBC 8.9 RBC 5.34 Hgb 15.4 Hct 44.3 MCV 83.0 MCH 28.8 MCHC 34.8 RDW 13.2 RDW Differential 39.8 Plt Count 174 MPV 10.5 Immature Gran % (Auto) 0.300 Neut % (Auto) 46.1 L Lymph % (Auto) 28.8 Campbell % (Auto) 7.0 Eos % (Auto) 17.6 H Baso % (Auto) 0.2 Absolute Neuts (auto) 4.1 Absolute Lymphs (auto) 2.57 Total Counted Not Reportable ESR 5 Sodium 140 Potassium 3.1 L Chloride 107 Carbon Dioxide 20.0 L Anion Gap 13 BUN 12 Creatinine 0.79 Estim Creat Clear Calc 109.24 Est GFR (MDRD) Af Amer 135 Est GFR (MDRD) Non-Af 112 BUN/Creatinine Ratio 15.2 Glucose 194 H Calcium 8.0 L Iron TIBC Iron Saturation Ferritin C-React Prot Ext Range 7.80 H Vitamin B12 IgG IgA IgM IgE - Other Studies Radiology: [] reviewed Other Studies: [] Route of nutrition/ use of supplements: [] Nutritional Intake: [] IV Site: [] Rucker Catheter: [] - Physical Exam General: Alert, Oriented x3, Cooperative, No apparent distress HEENT: Atraumatic, PERRLA, EOMI Neck: Supple, No Nodes Lungs: Clear to auscultation, Normal air movement Cardiovascular: Regular rate, Regular Rhythm, No murmurs Abdomen: Bowel Sounds Present, Soft, Non Tender, Non-Distended Extremities: No edema Skin: No rashes IV Site: Peripheral, without redness Musculoskeletal: No Tenderness to Palpation of Joints or Extremities Neurological: Cranial nerves II-XII grossly intact - Assessment/Plan Antibiotics: [] Assessment/Plan: [] Active and Suspected Problems Gastroenteritis and colitis, viral (Acute) PASQUALE (acute kidney injury) (Acute) Dehydration (Acute) Hypokalemia (Acute) Diarrhea - unclear cause, particularly with high eos, but no significant exposure history. Bx pending. On flagyl while O&P pending. Enteric pathogen panel was neg. HIV neg. Thank you, will follow, d/w Dr. Martin.
--- NOTE | 2017-09-22 15:08 | PCM.DC ---
- Discharge Diagnoses Current Active Problems: Current Active and Chronic Problems Gastroenteritis and colitis, viral (Acute) PASQUALE (acute kidney injury) (Acute) Dehydration (Acute) Diabetes mellitus type II, controlled, with no complications (Chronic) Essential hypertension, benign (Chronic) Hypokalemia (Acute) You will use the following diet at home:: Other - no dairy, no caffeine, low residue, G2 Gatorade.......no calories but has electrolytes Your food should be the consistency of: Regular Your liquids should be the consistency of: Regular/Thin Discharge Activity: No Restrictions Return to work on:: 09/23/17 Call your doctor if you observe: Fever of 101 or Higher, Shortness of breath, Dizziness, Fainting spells, - - abdominal pain, nausea, vomiting, blood in your bowel movements Instructions: Low-Residue Diet Additional Instructions: Dr. Fernandes will have the results of the stool tests for parasites and the biopsies of the colon to discuss with you at your office appt. I want you to follow up with him the end of next week. If you are feeling lightheaded and weak I would skip [place]....you do not want to go there and end up in a hopsital in [place] Allergies/Adverse Reactions: Allergies No Known Allergies Allergy (Verified 09/19/17 09:16) Medications to take at Discharge Empagliflozin [Jardiance] 10 mg PO DAILY 09/19/17 Glipizide [Glucotrol Xl] 10 mg PO DAILY 09/19/17 Losartan Potassium [Cozaar] 50 mg PO DAILY 09/19/17 Simvastatin [Zocor] 20 mg PO QHS 09/19/17 Ciprofloxacin [Cipro] 500 mg PO BID #20 tab 09/22/17 Metronidazole [Flagyl] 500 mg PO TID #16 tab 09/22/17 The following prescriptions were given: Ciprofloxacin [Cipro] 500 mg PO BID #20 tab Metronidazole [Flagyl] 500 mg PO TID #16 tab Primary Care Physician: Mohinder Bonilla MD [Primary Care Provider] - Please follow up with your Primary Care Physician in: 10-14 days Please Follow Up With: Toni Fernandes MD When: the end of next week Proposed Discharge Date: 09/22/17
--- NOTE | 2017-09-22 15:19 | DCINST_ITS ---
- Discharge Diagnoses Current Active Problems: Current Active and Chronic Problems Gastroenteritis and colitis, viral (Acute) PASQUALE (acute kidney injury) (Acute) Dehydration (Acute) Diabetes mellitus type II, controlled, with no complications (Chronic) Essential hypertension, benign (Chronic) Hypokalemia (Acute) You will use the following diet at home:: Other - no dairy, no caffeine, low residue, G2 Gatorade.......no calories but has electrolytes Your food should be the consistency of: Regular Your liquids should be the consistency of: Regular/Thin Discharge Activity: No Restrictions Return to work on:: 09/23/17 Call your doctor if you observe: Fever of 101 or Higher, Shortness of breath, Dizziness, Fainting spells, - - abdominal pain, nausea, vomiting, blood in your bowel movements Instructions: Low-Residue Diet Additional Instructions: Dr. Fernandes will have the results of the stool tests for parasites and the biopsies of the colon to discuss with you at your office appt. I want you to follow up with him the end of next week. If you are feeling lightheaded and weak I would skip [place]....you do not want to go there and end up in a hopsital in [place] Allergies/Adverse Reactions: Allergies No Known Allergies Allergy (Verified 09/19/17 09:16) Medications to take at Discharge Empagliflozin [Jardiance] 10 mg PO DAILY 09/19/17 Glipizide [Glucotrol Xl] 10 mg PO DAILY 09/19/17 Losartan Potassium [Cozaar] 50 mg PO DAILY 09/19/17 Simvastatin [Zocor] 20 mg PO QHS 09/19/17 Ciprofloxacin [Cipro] 500 mg PO BID #20 tab 09/22/17 Metronidazole [Flagyl] 500 mg PO TID #16 tab 09/22/17 The following prescriptions were given: Ciprofloxacin [Cipro] 500 mg PO BID #20 tab Metronidazole [Flagyl] 500 mg PO TID #16 tab Primary Care Physician: Mohinder Bonilla MD [Primary Care Provider] - Please follow up with your Primary Care Physician in: 10-14 days Please Follow Up With: Toni Fernandes MD When: the end of next week Proposed Discharge Date: 09/22/17
--- NOTE | 2017-09-22 15:23 | PCM.DC.SUM ---
Discharge Date and Diagnosis - Problem List Patient Problems: Active and Suspected Problems Ulcerated colon (Acute) Hypophosphatemia (Acute) Enterocolitis (Acute) Eosinophilia (Acute) Date of Admission: 09/19/17 Date of Discharge: 09/22/17 - Primary Discharge Diagnosis Active and Suspected Problems Enterocolitis (Acute) Eosinophilia (Acute) PASQUALE (acute kidney injury) (Acute) Ulcerated colon (Acute) - rectum and sigmoid colon Hypophosphatemia (Acute) Dehydration (Acute) Hypokalemia (Acute) - Secondary Discharge Diagnosis Chronic Problems Diabetes mellitus type II, controlled, with no complications (Chronic) Essential hypertension, benign (Chronic) Hospital Course and Treatment Imaging Results: Clinical Impression(s) from Imaging Studies Abdomen/Pelvis CT 09/19/17 10:21 IMPRESSION: 1. Mild sigmoid diverticulosis without acute diverticulitis. No sign of bowel obstruction. The appendix is normal. 2. There are central mesenteric lymph nodes ranging from nonspecific subcentimeter size to mildly enlarged. No inflammatory/congestive mesenteric stranding, however. 3. 5 mm low-density difficult to characterize in segment IV of the liver. 4. No hydronephrosis. 5. Prostate gland size is upper normal. 6. Degenerative changes in the spine and pelvis. Electronically Signed: Hao Smith MD at 12:43 EST , Service support , Microbiology 09/20/17 10:00 Stool Stool Lactoferrin - Final - negative 09/19/17 10:00 Stool Enteric Bacteriology - Final - negative O&P pending Dr. Toni Fernandes-gastroenterology Operations: None Procedures: Colonoscopy Summary of Care Provided: Patient is a 47-year-old male with a past medical history of diabetes mellitus type 2, obesity and hypertension who presented to the emergency room at [facility] on 09/19/2017 complaining of a 5 day history of severe diarrhea. Vital signs at presentation to the emergency room were temperature 98?F, pulse rate 103, pressure 139/84, respiratory rate 18 and he was 96-99% saturated on room air. White blood cell count was elevated at 18.6 with 15% eosinophils. Sodium was 130 and the potassium was 3.4. BUN was 20 with a creatinine of 1.43. Glucose was 313 and the lactic acid was 2.4. Calcium was elevated at 10.7 secondary to dehydration. LFTs were unremarkable. The enteric pathogen panel was negative. Fecal leukocytes were negative. Ova and parasites were sent but the results are not available at the time of discharge. He stated that he had a sick contact with similar symptoms, but the sx had resolved in 3 days. He denied any personal or FH of IBD's. He and his family have well water but none of the other family members were sick. He denied any recent travel. He denied any hematochezia or melena. He denied fever, chills, nausea, vomiting, abdominal pain. He stated his appetite was good but as soon as he eats he has bowel movement. He had not been able to sleep because he is having a bowel movement or 2 every hour even at night. Lab done on the day following admission showed an elevated white blood cell count at 12.2 with 26.8% eosinophils. He denied rash, pruritus, joint pain, difficulty swallowing, shortness of breath or wheezing. He did tell me that he has seasonal allergies. The stool sample was collected on that day for over and parasites and following the stool collection he was started on metronidazole 500 mg p.o. 3 times daily for possible parasitic/Giardia lamblia infection. He was seen in consultation by Dr. Toni Fernandes and scheduled for colonoscopy on 09/22/2017. There were small erosions and shallow ulcerations in the left colon and multiple biopsies were taken. Lab on 09/22 showed the white blood cell count to be down to 8.9 and the eosinophils had decreased to 17.6%. He had less diarrhea and Dr. Fernandes recommended sending him home on Cipro and flagyl and he will follow up with Dr. Fernandes in the office next week to review the biopsy results and the O&P results. He was advised to discontinue the Metformin until the cause of the diarrhea has been identified and the diarrhea has resolved. He will stick to a low residue diet and I recommended Zero Calorie Gatorade for ELYTE replacement. This note was generated with Sohalo[employer] software. It may contain incorrect words, spelling, and punctuation that were not noted in checking the note before signing. Discharge Activity: No Restrictions Return to work on:: 09/23/17 Call your doctor if you observe: Fever of 101 or Higher, Shortness of breath, Dizziness, Fainting spells, - - abdominal pain, nausea, vomiting, blood in your bowel movements Home Medications: Medications to take at Discharge Empagliflozin [Jardiance] 10 mg PO DAILY 09/19/17 Glipizide [Glucotrol Xl] 10 mg PO DAILY 09/19/17 Losartan Potassium [Cozaar] 50 mg PO DAILY 09/19/17 Simvastatin [Zocor] 20 mg PO QHS 09/19/17 Ciprofloxacin [Cipro] 500 mg PO BID #20 tab 09/22/17 Metronidazole [Flagyl] 500 mg PO TID #16 tab 09/22/17 Following Prescrptions Were Given to Patient: Ciprofloxacin [Cipro] 500 mg PO BID #20 tab Metronidazole [Flagyl] 500 mg PO TID #16 tab Primary Care Physician: Mohinder Bonilla MD [Primary Care Provider] - Please follow up with your Primary Care Physician in: 10-14 days Please Follow Up With: Toni Fernandes MD When: the end of next week Patient Instructions: Low-Residue Diet Disposition: Home Minutes spent on discharge:: 35 Patient Condition:: Stable Meaningful Use Info Meaningful Use Diagnoses (Choose all that apply): None applicable Code Visit Inpatient E&M: 19476 Disch Hosp
--- NOTE | 2017-09-22 15:27 | DS.PCM_ITS ---
Discharge Date and Diagnosis - Problem List Patient Problems: Active and Suspected Problems Ulcerated colon (Acute) Hypophosphatemia (Acute) Enterocolitis (Acute) Eosinophilia (Acute) Date of Admission: 09/19/17 Date of Discharge: 09/22/17 - Primary Discharge Diagnosis Active and Suspected Problems Enterocolitis (Acute) Eosinophilia (Acute) PASQUALE (acute kidney injury) (Acute) Ulcerated colon (Acute) - rectum and sigmoid colon Hypophosphatemia (Acute) Dehydration (Acute) Hypokalemia (Acute) - Secondary Discharge Diagnosis Chronic Problems Diabetes mellitus type II, controlled, with no complications (Chronic) Essential hypertension, benign (Chronic) Hospital Course and Treatment Imaging Results: Clinical Impression(s) from Imaging Studies Abdomen/Pelvis CT 09/19/17 10:21 IMPRESSION: 1. Mild sigmoid diverticulosis without acute diverticulitis. No sign of bowel obstruction. The appendix is normal. 2. There are central mesenteric lymph nodes ranging from nonspecific subcentimeter size to mildly enlarged. No inflammatory/congestive mesenteric stranding, however. 3. 5 mm low-density difficult to characterize in segment IV of the liver. 4. No hydronephrosis. 5. Prostate gland size is upper normal. 6. Degenerative changes in the spine and pelvis. Electronically Signed: Hao Smith MD at 12:43 EST , Service support , Microbiology 09/20/17 10:00 Stool Stool Lactoferrin - Final - negative 09/19/17 10:00 Stool Enteric Bacteriology - Final - negative O&P pending Dr. Toni Fernandes-gastroenterology Operations: None Procedures: Colonoscopy Summary of Care Provided: Patient is a 47-year-old male with a past medical history of diabetes mellitus type 2, obesity and hypertension who presented to the emergency room at [facility] on 09/19/2017 complaining of a 5 day history of severe diarrhea. Vital signs at presentation to the emergency room were temperature 98?F, pulse rate 103, pressure 139/84, respiratory rate 18 and he was 96-99% saturated on room air. White blood cell count was elevated at 18.6 with 15% eosinophils. Sodium was 130 and the potassium was 3.4. BUN was 20 with a creatinine of 1.43. Glucose was 313 and the lactic acid was 2.4. Calcium was elevated at 10.7 secondary to dehydration. LFTs were unremarkable. The enteric pathogen panel was negative. Fecal leukocytes were negative. Ova and parasites were sent but the results are not available at the time of discharge. He stated that he had a sick contact with similar symptoms, but the sx had resolved in 3 days. He denied any personal or FH of IBD's. He and his family have well water but none of the other family members were sick. He denied any recent travel. He denied any hematochezia or melena. He denied fever, chills, nausea, vomiting, abdominal pain. He stated his appetite was good but as soon as he eats he has bowel movement. He had not been able to sleep because he is having a bowel movement or 2 every hour even at night. Lab done on the day following admission showed an elevated white blood cell count at 12.2 with 26.8% eosinophils. He denied rash, pruritus, joint pain , difficulty swallowing, shortness of breath or wheezing. He did tell me that he has seasonal allergies. The stool sample was collected on that day for over and parasites and following the stool collection he was started on metronidazole 500 mg p.o. 3 times daily for possible parasitic/Giardia lamblia infection. He was seen in consultation by Dr. Toni Fernandes and scheduled for colonoscopy on 09/22/2017. There were small erosions and shallow ulcerations in the left colon and multiple biopsies were taken. Lab on 09/22 showed the white blood cell count to be down to 8.9 and the eosinophils had decreased to 17.6%. He had less diarrhea and Dr. Fernandes recommended sending him home on Cipro and flagyl and he will follow up with Dr. Fernandes in the office next week to review the biopsy results and the O&P results. He was advised to discontinue the Metformin until the cause of the diarrhea has been identified and the diarrhea has resolved. He will stick to a low residue diet and I recommended Zero Calorie Gatorade for ELYTE replacement. This note was generated with [employer] software. It may contain incorrect words, spelling, and punctuation that were not noted in checking the note before signing. Discharge Activity: No Restrictions Return to work on:: 09/23/17 Call your doctor if you observe: Fever of 101 or Higher, Shortness of breath, Dizziness, Fainting spells, - - abdominal pain, nausea, vomiting, blood in your bowel movements Home Medications: Medications to take at Discharge Empagliflozin [Jardiance] 10 mg PO DAILY 09/19/17 Glipizide [Glucotrol Xl] 10 mg PO DAILY 09/19/17 Losartan Potassium [Cozaar] 50 mg PO DAILY 09/19/17 Simvastatin [Zocor] 20 mg PO QHS 09/19/17 Ciprofloxacin [Cipro] 500 mg PO BID #20 tab 09/22/17 Metronidazole [Flagyl] 500 mg PO TID #16 tab 09/22/17 Following Prescrptions Were Given to Patient: Ciprofloxacin [Cipro] 500 mg PO BID #20 tab Metronidazole [Flagyl] 500 mg PO TID #16 tab Primary Care Physician: Mohinder Bonilla MD [Primary Care Provider] - Please follow up with your Primary Care Physician in: 10-14 days Please Follow Up With: Toni Fernandes MD When: the end of next week Patient Instructions: Low-Residue Diet Disposition: Home Minutes spent on discharge:: 35 Patient Condition:: Stable Meaningful Use Info Meaningful Use Diagnoses (Choose all that apply): None applicable Code Visit Inpatient E&M: 84323 Disch Hosp
[2017-09-27 09:37] LABS: Immunoglobulin A 139 mg/dL (90-386); Immunoglobulin G 473 mg/dL (700-1600); Immunoglobulin M 26 mg/dL (20-172)
[2017-09-28 16:50] LABS: Immunoglobulin E 7 IU/mL (0-100)
[2017-09-28 16:50] LABS: Immunoglobulin E 8 IU/mL (0-100)
== END 2017-09-22 16:00 | disposition home or self-care (01) | DRG 394 ==
LOC: ED 13:40 → MS2 13:47
PROVIDERS: Internal Medicine Gastroenterology; Admitting Provider Hospitalist; Emergency Provider Emergency Medicine; Family Provider Family Medicine; PCP Family Medicine; Visit Provider Internal Medicine
PROC: 0DJD8ZZ Inspection of Lower Intestinal Tract, Via Natural or Artificial Opening Endoscopic (ICD-10-PCS; CPT 45378; principal; 2017-09-22 11:40)
DX: K63.3 Ulcer of intestine (principal); N17.9 Acute kidney failure, unspecified; D72.1 Eosinophilia; E83.39 Other disorders of phosphorus metabolism; E86.0 Dehydration; K52.9 Noninfective gastroenteritis and colitis, unspecified; Z23 Encounter for immunization; E11.9 Type 2 diabetes mellitus without complications; I10 Essential (primary) hypertension; E87.6 Hypokalemia; Z79.84 Long term (current) use of oral hypoglycemic drugs; E66.9 Obesity, unspecified; Z68.34 Body mass index [BMI] 34.0-34.9, adult; Z79.899 Other long term (current) drug therapy
CPT/HCPCS: 45380; 36415; 74177; 80048; 80053; 80061; 82607; 82728; 82784; 82785; 82962; 83036; 83540; 83550; 83605; 83630; 83735; 84100; 85025; 85652; 86140; 86703; 87177; 87209; 87506; 88305; 88313; 93005; 97802; 99218; 99284; J7030; J7040; J7050; Q9967; 90686; A4216; G0378; J2405

== ENCOUNTER → 2018-06-27 09:53 | Outpatient (CLI) | payer BC, SELFPAY ==
[2018-06-27 12:40] LABS: AST(SGOT) 17 U/L (15-37); Alanine Aminotransfer ALT/SGPT 32 U/L (16-61); Albumin, Serum 3.9 g/dL (3.2-5.0); Alkaline Phosphatase 54 U/L (45-117); Anion Gap 12 (5-15); BUN 16 mg/dL (7-18); BUN/Creat Ratio 16.7 RATIO (10-20); Bilirubin, Direct 0.11 mg/dL (0.00-0.30); Calcium,Total 8.6 mg/dL (8.5-10.1); Chloride 105 mmol/L (98-107); Cholesterol 177 mg/dL (200); Creatinine, Serum 0.96 mg/dL (0.70-1.30); EST Glomerular Filtration Rate 89 mL/min (>60); Est Glom Filt Rate - Afr Amer 108 mL/min (>60); Globulin 3.7 g/dL (2.2-4.2); Glucose 131 mg/dL (74-106); High Density Lipoprotein 35 mg/dL; Potassium 3.8 mmol/L (3.5-5.1); Protein, Total 7.6 g/dL (6.4-8.2); Sodium Level 139 mmol/L (136-145); Triglycerides 200 mg/dL; Very Low Density Lipoprotein 40 mg/dL (5-40)
[2018-06-27 12:54] LABS: Microalbumin:Creatinine Ratio 175.7 mg/g CRE (<30 mg/g CRE)
== END ==
PROVIDERS: Family Provider Family Medicine; PCP Family Medicine; Visit Provider Family Medicine
DX: E11.9 Type 2 diabetes mellitus without complications (principal)
CPT/HCPCS: 36415; 80048; 80061; 80076; 82043; 82570

== ENCOUNTER → 2019-03-18 11:54 | Outpatient (CLI) | payer BC, SELFPAY ==
[2019-03-18 14:12] LABS: Microalbumin:Creatinine Ratio 263.7 mg/g CRE (<30 mg/g CRE)
[2019-03-18 14:24] LABS: Anion Gap 7 (5-15); BUN 16 mg/dL (7-18); BUN/Creat Ratio 18.6 RATIO (10-20); Calcium,Total 8.7 mg/dL (8.5-10.1); Chloride 104 mmol/L (98-107); Cholesterol 173 mg/dL (200); Creatinine, Serum 0.86 mg/dL (0.70-1.30); EST Glomerular Filtration Rate 101 mL/min (>60); Est Glom Filt Rate - Afr Amer 122 mL/min (>60); Glucose 87 mg/dL (74-106); High Density Lipoprotein 38 mg/dL; Potassium 3.7 mmol/L (3.5-5.1); Sodium Level 139 mmol/L (136-145); Triglycerides 291 mg/dL; Very Low Density Lipoprotein 58 mg/dL (5-40)
== END ==
PROVIDERS: Family Provider Family Medicine; PCP Family Medicine; Visit Provider Family Medicine
DX: E11.9 Type 2 diabetes mellitus without complications (principal)
CPT/HCPCS: 36415; 80048; 80061; 82043; 82570

== ENCOUNTER → 2020-03-27 08:46 | Outpatient (CLI) | payer BC, SELFPAY ==
[2019-09-08 13:12] VITALS: BMI 34.5
[2020-03-27 10:21] LABS: Anion Gap 5 (5-15); BUN 17 mg/dL (7-18); BUN/Creat Ratio 19.2 RATIO (10-20); Calcium,Total 8.6 mg/dL (8.5-10.1); Chloride 105 mmol/L (98-107); Cholesterol 167 mg/dL (200); Creatinine, Serum 0.89 mg/dL (0.70-1.30); EST Glomerular Filtration Rate 97 mL/min (>60); Est Glom Filt Rate - Afr Amer 118 mL/min (>60); Glucose 152 mg/dL (74-106); High Density Lipoprotein 36 mg/dL; Potassium 4.1 mmol/L (3.5-5.1); Sodium Level 138 mmol/L (136-145); Triglycerides 246 mg/dL; Very Low Density Lipoprotein 49 mg/dL (5-40)
[2020-03-27 11:18] LABS: Hemoglobin A1c 6.5 % (3.8-5.6)
== END ==
PROVIDERS: PCP Family Medicine; Referring Provider Family Medicine; Visit Provider Family Medicine
DX: E11.9 Type 2 diabetes mellitus without complications (principal)
CPT/HCPCS: 36415; 80048; 80061; 82043; 82570; 83036

== ENCOUNTER 2020-10-22 08:09 | Outpatient (RCR) | payer BC, SELFPAY ==
[2019-09-08 13:12] VITALS: BMI 34.5
[2020-10-22] MEDS: COVID-19 VACC, MRNA(PFIZER)/PF 30 MCG/0.3 ML SYRINGE IM (08:13)
[2020-11-12] MEDS: COVID-19 VACC, MRNA(PFIZER)/PF 30 MCG/0.3 ML SYRINGE IM (08:04)
== END 2020-10-22 23:59 ==
LOC: IMMUN 08:09
PROVIDERS: PCP Family Medicine; Visit Provider Family Medicine
DX: Z23 Encounter for immunization (principal)
CPT/HCPCS: 0001A; 0002A; 91300

== ENCOUNTER 2021-10-27 08:56 | Outpatient (CLI) | payer BC, SELFPAY ==
[2021-10-27 11:02] LABS: Anion Gap 11 (5-15); BUN 14 mg/dL (7-18); BUN/Creat Ratio 15.5 RATIO (10-20); Calcium,Total 9.7 mg/dL (8.5-10.1); Chloride 104 mmol/L (98-107); Creatinine, Serum 0.91 mg/dL (0.70-1.30); EST Glomerular Filtration Rate 94 mL/min (>60); Est Glom Filt Rate - Afr Amer 114 mL/min (>60); Glucose 175 mg/dL (74-106); Potassium 3.9 mmol/L (3.5-5.1); Sodium Level 141 mmol/L (136-145)
== END 2021-10-27 23:59 | disposition home or self-care (01) ==
PROVIDERS: PCP Family Medicine; Referring Provider Family Medicine; Visit Provider Family Medicine
DX: E11.9 Type 2 diabetes mellitus without complications (principal)
CPT/HCPCS: 36415; 80048

== ENCOUNTER → 2022-05-16 | Outpatient (CLI) | payer BC, SELFPAY ==
[2022-05-16 10:49] LABS: Microalbumin:Creatinine Ratio 508.9 mg/g CRE (<30 mg/g CRE)
[2022-05-16 11:07] LABS: Anion Gap 10 (5-15); BUN 15 mg/dL (7-18); Chloride 106 mmol/L (98-107); Cholesterol 152 mg/dL (200); Creatinine, Serum 0.88 mg/dL (0.70-1.30); EST Glomerular Filtration Rate 97 mL/min (>60); Est Glom Filt Rate - Afr Amer 118 mL/min (>60); Glucose 144 mg/dL (74-106); High Density Lipoprotein 36 mg/dL; Potassium 3.6 mmol/L (3.5-5.1); Sodium Level 141 mmol/L (136-145); Triglycerides 342 mg/dL; Very Low Density Lipoprotein 68 mg/dL (5-40)
== END | disposition home or self-care (01) ==
LOC: MFPLAB 08:55
PROVIDERS: PCP Family Medicine; Visit Provider Family Medicine
DX: E11.9 Type 2 diabetes mellitus without complications (principal)
CPT/HCPCS: 36415; 80048; 80061; 82043; 82570

== ENCOUNTER 2023-01-13 12:30 | Emergency (ER) | payer BC, SELFPAY ==
[2023-01-13 12:31] VITALS: BP 127/52; PULSE 93; RESP 16; TEMP 36.9; O2SAT 99; BMI 35.4
--- NOTE | 2023-01-13 13:24 | EDS_ITS ---
HPI HPI - GI History of Present Illness Chief Complaint: Abd Pain Informant: patient Narrative Narrative: Constipation, bloating, along with left upper quadrant discomfort for the past 5 or 6 days. Has had constipation in the past but usually is very regular with a bowel movement every 1 or 2 days. He has had very small amounts of stool in the past week, and when he goes it is very hard. No blood. No nausea or vomiting. No history of any abdominal surgeries. He has had urinary frequency but no other symptoms, he is a type II diabetic and states last time he checked his blood sugar was yesterday and was 99. He denies any dysuria or hematuria. [facility] Medical History Acute lumbar myofascial strain Diabetes Hay fever HTN (hypertension) Intestinal infection due to bacteria causing bloody diarrhea Home Medications glipizide 10 mg tablet, extended release 24 hr 10 mg PO DAILY DIABETES 09/19/17 [History Last Taken 09/19/17 08:30] losartan 50 mg tablet 50 mg PO DAILY BLOOD PRESSURE 09/19/17 [History Last Taken 09/19/17 08:30] Flucelvax Quad 7445-9924 (PF) 60 mcg (15 mcg x 4)/0.5 mL IM syringe (flu vac qs 2018(4 yr up)CD(PF)) 60 mcg IM ONCE #1 mL 09/08/19 [Clinic Last Taken Unknown] empagliflozin 10 mg tablet 10 mg PO DAILY DIABETES 09/08/19 [History Last Taken Unknown] metformin 1,000 mg tablet mg PO 09/08/19 [History Last Taken Unknown] ibuprofen 800 mg tablet 800 mg PO TID PRN pain #30 tabs 08/10/22 [Rx Last Taken Unknown] omeprazole 20 mg tablet,delayed release 20 mg PO DAILY PRN 01/13/23 [History Last Taken Unknown] rosuvastatin 20 mg tablet 20 mg PO DAILY 01/13/23 [History Last Taken Unknown] simvastatin 20 mg tablet 20 mg PO QHS CHOLESTEROL 01/13/23 [History Last Taken Unknown] Allergy/AdvReac Type Severity Reaction Status Date / Time No Known Allergies Allergy Verified 01/13/23 12:32 Family History (Updated 09/08/19 @ 11:45 by Palmira Lamb) Other Cancer Diabetes Social History Smoking Status: Never smoker ROS ROS ED Constitutional Constitutional ED: Denies chills or fever(s) Eyes Eyes: Denies change in vision or diplopia ENT ENT ED: Denies rhinorrhea or sore throat Cardiovascular Cardiovascular: Denies chest pain or palpitations Respiratory/Chest Respiratory/Chest: Denies cough or dyspnea Gastrointestinal Gastrointestinal: Reports as per HPI, abdominal pain and constipation; Denies diarrhea, melena, nausea or vomiting Genitourinary Genitourinary ED: Reports urinary frequency; Denies dysuria or hematuria Musculoskeletal Musculoskeletal: Denies back pain or neck pain Integumentary Denies abscess or rash Neurologic Neurologic: Denies headache(s), paresthesias or weakness Psychiatric Psychiatric: Denies anxiety or suicidal thoughts EXAM Physical Exam Const Vital Signs: 01/13/23 12:31 01/13/23 14:57 Temperature 98.4 F Temperature Source Temporal Pulse Rate 93 72 Respiratory Rate 16 16 Blood Pressure 127/52 H 149/74 H Blood Pressure Mean 77 Pulse Ox 99 98 Oxygen Delivery Method Room Air Positive well nourished and well developed General Appearance ED: well developed and NAD HEENT Reports moist mucous membranes normocephalic and atraumatic Eyes PERRL and EOMs intact bilaterally Neck full ROM and supple Resp normal respiratory effort and clear to auscultation bilaterally Cardio regular rate, regular rhythm and no murmurs GI GI Narrative: Mild distention, mildly tender left upper quadrant, medially but otherwise very benign and no guarding or rebound. Auscultation: normoactive bowel sounds Palpation: soft Back/Spine no CVA tenderness General Back: other FROM Extremity normal to inspection General Extremety ED: Negative for edema, pulses abnormal or tenderness General Extremity: Negative for edema or pulses abnormal Neuro oriented x3, CN's II-XII intact bilaterally and no sensory deficits noted Sensorium / Orientation: awake and alert Motor Exam: strength 5/5 throughout Skin no rashes or lesions noted and no wounds MDM MDM MDM Narrative Medical decision making narrative: Given the patient's urinary frequency we did check a urinalysis which does not show signs of acute infection, but does show glycosuria. His blood sugar right now is 99. I did review the outpatient abdominal series that was performed, it was interpreted as normal by the radiologist, I reassured the patient and I suspect this is all due to constipation. He was amenable to getting a soapsuds enema. He felt a lot better afterwards, on reexamination his abdomen is nontender, and was discharged home with appropriate discharge instructions. Lab Data Attestation: I reviewed the patient's lab results. Labs: Laboratory Results - last 24 hr 01/13/23 01/13/23 13:20 13:24 Urine Color Yellow Urine Clarity Clear Urine pH 5.0 Ur Specific [place] 1.020 Urine Protein 100 H Urine Glucose (UA) 1000 H Urine Ketones 150 A* Urine Occult Blood 25 H Urine Nitrite Negative Urine Bilirubin Negative Urine Urobilinogen Normal Ur Leukocyte Esterase Negative Urine RBC 0 SEEN Urine WBC 5-10 SEEN Ur Squamous Epith Cells 0-5 SEEN Urine Bacteria 0 SEEN Urine Mucus 0 SEEN POC Glucose 99 Discharge Plan Triage Chief Complaint: Abd Pain ED Provider: Yonny Connolly Dx/Rx/DC Orders Clinical Impression: Acute constipation Instructions: ED Constipation (Adult) Prescriptions: No Action metformin 1,000 mg tablet PO Flucelvax Quad 9899-2210 (PF) 60 mcg (15 mcg x 4)/0.5 mL syringe 60 mcg IM ONCE Qty: 1 0RF ibuprofen 800 mg tablet 800 mg PO TID PRN (Reason: pain) Qty: 30 0RF rosuvastatin 20 mg tablet 20 mg PO DAILY omeprazole 20 mg tablet,delayed release (DR/EC) 20 mg PO DAILY PRN losartan 50 MG tablet 50 mg PO DAILY glipizide 10 MG tablet extended release 24hr 10 mg PO DAILY empagliflozin 10 mg tablet 10 mg PO DAILY simvastatin 20 mg tablet 20 mg PO QHS Primary Care Provider: Mohinder Bonilla Referrals: Mohinder Bonilla MD [Primary Care Provider] - 1 Week if not improving Disposition Disposition: Home, Self Care Discharge Date/Time: 01/13/23 14:58
[2023-01-13 13:30] LABS: Bacteria 0 SEEN /hpf (None Seen); Mucous, Urine 0 SEEN /hpf (<or=2+); Red Blood Cells-Urine 0 SEEN /hpf (0-5)
[2023-01-13 13:37] LABS: Color, Urine Yellow (Yellow); Glucose, Dipstick 1000 mg/dl (Normal); Leukocyte Esterase-Dipstick Negative /ul (Negative); Nitrite-Dipstick Negative (Negative); Occult Blood-Urine 25 /ul (Negative); Protein-Dipstick 100 mg/dl (Negative); Urine Bilirubin Dipstick Negative (Negative); Urine Clarity Clear (Clear); Urine Urobilinogen Normal (Normal)
[2023-01-13 13:40] LABS: Ketone-Dipstick 150 mg/dl (Negative)
[2023-01-13 13:43] LABS: Bedside Glucose 99 mg/dL (74-106)
[2023-01-13 14:00] LABS: Squamous Epithelial Cells - UA 0-5 SEEN /hpf (0-5); White Blood Cells 5-10 SEEN /hpf (0-5)
[2023-01-13 14:57] VITALS: BP 149/74; PULSE 72; RESP 16; O2SAT 98
== END 2023-01-13 14:58 | disposition home or self-care (01) ==
PROVIDERS: Emergency Provider Emergency Medicine; PCP Family Medicine; Visit Provider Emergency Medicine
DX: K59.00 Constipation, unspecified (principal); E11.9 Type 2 diabetes mellitus without complications; I10 Essential (primary) hypertension; Z79.84 Long term (current) use of oral hypoglycemic drugs; Z79.899 Other long term (current) drug therapy
CPT/HCPCS: 81001; 82962; 99285

== ENCOUNTER → 2023-02-20 | Outpatient (CLI) | payer BC, SELFPAY ==
[2023-02-20 10:48] LABS: ALB/GLOB Ratio 1.1 RATIO (0.9-2.4); AST(SGOT) 14 U/L (15-37); Alanine Aminotransfer ALT/SGPT 30 U/L (16-61); Albumin, Serum 3.8 g/dL (3.2-5.0); Alkaline Phosphatase 52 U/L (45-117); Anion Gap 8 (5-15); BUN 18 mg/dL (7-18); BUN/Creat Ratio 18.9 RATIO (10-20); Calcium,Total 8.6 mg/dL (8.5-10.1); Chloride 105 mmol/L (98-107); Cholesterol 135 mg/dL (200); Creatinine, Serum 0.95 mg/dL (0.70-1.30); EST Glomerular Filtration Rate 89 mL/min (>60); Est Glom Filt Rate - Afr Amer 107 mL/min (>60); Globulin 3.5 g/dL (2.2-4.2); Glucose 188 mg/dL (74-106); High Density Lipoprotein 38 mg/dL; Protein, Total 7.3 g/dL (6.4-8.2); Sodium Level 138 mmol/L (136-145); Triglycerides 214 mg/dL; Very Low Density Lipoprotein 43 mg/dL (5-40)
== END | disposition home or self-care (01) ==
LOC: MTLAB 08:31
PROVIDERS: PCP Family Medicine; Referring Provider Family Medicine; Visit Provider Family Medicine
DX: E13.69 Other specified diabetes mellitus with other specified complication (principal); E78.5 Hyperlipidemia, unspecified
CPT/HCPCS: 36415; 80053; 80061

== ENCOUNTER → 2023-06-09 | Outpatient (CLI) | payer BC, SELFPAY ==
[2023-06-09 18:05] LABS: Anion Gap 9 (5-15); BUN 25 mg/dL (7-18); BUN/Creat Ratio 26.7 RATIO (10-20); Calcium,Total 9.2 mg/dL (8.5-10.1); Chloride 103 mmol/L (98-107); Cholesterol 174 mg/dL (200); Creatinine, Serum 0.94 mg/dL (0.70-1.30); EST Glomerular Filtration Rate 90 mL/min (>60); Est Glom Filt Rate - Afr Amer 109 mL/min (>60); Glucose 76 mg/dL (74-106); High Density Lipoprotein 34 mg/dL; Sodium Level 138 mmol/L (136-145); Triglycerides 298 mg/dL; Very Low Density Lipoprotein 60 mg/dL (5-40)
== END | disposition home or self-care (01) ==
LOC: MFPLAB 14:07
PROVIDERS: PCP Family Medicine; Visit Provider Family Medicine
DX: E13.69 Other specified diabetes mellitus with other specified complication (principal); E78.5 Hyperlipidemia, unspecified
CPT/HCPCS: 36415; 80048; 80061

== ENCOUNTER → 2023-12-01 | Outpatient (CLI) | payer BC, SELFPAY ==
--- NOTE | 2023-12-01 11:08 | RAD_ITS ---
STUDY: X-RAY - LEFT SHOULDER REASON FOR EXAM: Male, 53 years old. PAIN TECHNIQUE: 4 view(s) of the shoulder. COMPARISON: None. FINDINGS: Normal glenohumeral articulation. There is degenerative arthrosis of the acromioclavicular joint without inferior osseous spur formation. Normal acromion. Normal humeral head and visualized proximal humerus. The soft tissue structures are unremarkable. Normal visualized pulmonary apex. 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 Electronically Signed: Perico Landry MD at 14:33 EDT ,
== END | disposition home or self-care (01) ==
LOC: MTRAD 11:07
PROVIDERS: PCP Family Medicine; Referring Provider Family Medicine; Visit Provider Family Medicine
DX: M25.512 Pain in left shoulder (principal)
CPT/HCPCS: 73030

== ENCOUNTER → 2024-02-22 | Outpatient (CLI) | payer BC, SELFPAY ==
[2024-02-22 10:56] LABS: Anion Gap 15 (5-15); BUN 25 mg/dL (7-18); BUN/Creat Ratio 26.9 RATIO (10-20); Calcium,Total 8.9 mg/dL (8.5-10.1); Chloride 103 mmol/L (98-107); Cholesterol 316 mg/dL (200); Creatinine, Serum 0.93 mg/dL (0.70-1.30); EST Glomerular Filtration Rate 90 mL/min (>60); Est Glom Filt Rate - Afr Amer 109 mL/min (>60); Glucose 189 mg/dL (74-106); High Density Lipoprotein 41 mg/dL; Potassium 3.7 mmol/L (3.5-5.1); Sodium Level 137 mmol/L (136-145); Triglycerides 344 mg/dL; Very Low Density Lipoprotein 69 mg/dL (5-40)
[2024-02-22 11:09] LABS: Microalbumin:Creatinine Ratio 697.8 mg/g CRE (<30 mg/g CRE)
== END | disposition home or self-care (01) ==
LOC: MFPLAB 08:38
PROVIDERS: PCP Family Medicine; Visit Provider Family Medicine
DX: I10 Essential (primary) hypertension (principal); E13.69 Other specified diabetes mellitus with other specified complication
CPT/HCPCS: 36415; 80048; 80061; 82043; 82570

== ENCOUNTER → 2024-05-24 | Outpatient (CLI) | payer BC, SELFPAY ==
[2024-05-24 11:55] LABS: Anion Gap 8 (5-15); BUN 15 mg/dL (7-18); BUN/Creat Ratio 17.4 RATIO (10-20); Chloride 104 mmol/L (98-107); Cholesterol 167 mg/dL (200); Creatinine, Serum 0.86 mg/dL (0.70-1.30); EST Glomerular Filtration Rate 99 mL/min (>60); Est Glom Filt Rate - Afr Amer 120 mL/min (>60); Glucose 124 mg/dL (74-106); High Density Lipoprotein 45 mg/dL; Potassium 3.6 mmol/L (3.5-5.1); Sodium Level 138 mmol/L (136-145); Triglycerides 260 mg/dL; Very Low Density Lipoprotein 52 mg/dL (5-40)
== END | disposition home or self-care (01) ==
LOC: MTLAB 09:03
PROVIDERS: PCP Family Medicine; Referring Provider Family Medicine; Visit Provider Family Medicine
DX: E13.69 Other specified diabetes mellitus with other specified complication (principal)
CPT/HCPCS: 36415; 80048; 80061

== ENCOUNTER → 2025-04-04 | Outpatient (CLI) | payer BC, SELFPAY ==
[2025-04-04 16:09] LABS: Anion Gap 16 (5-15); BUN 17 mg/dL (4-19); BUN/Creat Ratio 17.2 RATIO (10-20); Calcium,Total 9.4 mg/dL (7.6-11.0); Carbon Dioxide 23.2 mmol/L (21.0-32.0); Chloride 100 mmol/L (98-108); Cholesterol 304 mg/dL (<=200); Glucose 139 mg/dL (70-99); Low Density Lipoprotein Calc. 185 mg/dL; Potassium 3.8 mmol/L (3.3-5.1); Triglycerides 427 mg/dL; Very Low Density Lipoprotein 85 mg/dL (5-40); cholesterol:hdl ratio screen 8.91
== END | disposition home or self-care (01) ==
LOC: MFPLAB 11:50
PROVIDERS: PCP Family Medicine; Referring Provider Family Medicine; Visit Provider Family Medicine
DX: I10 Essential (primary) hypertension (principal)
CPT/HCPCS: 36415; 80048; 80061